=== PATIENT | female | born 2000 | race African-American/Black ===

== ENCOUNTER 2020-10-13 08:56 | Observation (INO) | payer MEDICAID ==
[~2020-10-13] VITALS: Ht 154.9 cm; Wt 80.7 kg
[2020-10-13] MEDS ORDERED: PREN1TAB78 MT (10:02)
[2020-10-13] MEDS ORDERED: FERR325T6 MT (10:02)
[2020-10-13] MEDS ORDERED: CHOL100046 (10:02)
[2020-10-13] MEDS ORDERED: OMEG-119 PO (10:02)
[2020-10-24] MEDS ORDERED: IBUP-2030 PO (05:28)
== END 2020-10-13 10:15 | disposition home or self-care (01) ==
LOC: 8EST NSY 08:56 → 8 EST LDRP 09:24
PROVIDERS: ADMIT Obstetrics & Gynecology; ATTEND Obstetrics & Gynecology
DX: O99.891 Other specified diseases and conditions complicating pregnancy (principal); O26.893 Other specified pregnancy related conditions, third trimester; M54.5 Low back pain; R10.30 Lower abdominal pain, unspecified; Z3A.33 33 weeks gestation of pregnancy
CPT/HCPCS: 59025; G0378; 99281

== ENCOUNTER 2024-06-14 20:56 | Emergency (ER) | payer MEDICAID ==
[~2024-06-14] VITALS: Ht 157.5 cm; Wt 90.4 kg
[~2024-06-14 20:56] MED LIST: CHOL100046; FERR325T6 MT; IBUP-2030 PO; OMEG-119 PO; PREN1TAB78 MT
[2024-06-14 20:58] VITALS: BP 108/47; TEMP 98.4; O2SAT 98
[2024-06-14 20:59] VITALS: PULSE 83
[2024-06-14] MEDS ORDERED: ACET325T52 MT (23:05)
[2024-06-14 23:15] VITALS: RESP 16; O2SAT 100
== END 2024-06-14 23:16 | disposition home or self-care (01) ==
LOC: ER 20:56
DX: J06.9 Acute upper respiratory infection, unspecified (principal)
CPT/HCPCS: 71045; 99283